=== PATIENT | female | born 1960 | race Caucasian/White ===

== ENCOUNTER → 2019-07-19 | Outpatient (CLI) | payer MEDICARE, OTHER ==
--- NOTE | 2019-07-19 18:06 | MR ---
EXAMINATION TYPE: MR knee RT wo con DATE OF EXAM: 07/19/2019 COMPARISON: None HISTORY: Rt knee pain TECHNIQUE: Multiplanar, multisequence imaging of the right knee is performed without IV contrast. FINDINGS: MEDIAL MENISCUS: There is linear increased signal within the posterior horn of the medial meniscus ho wever no clear communication with the articular surface is present LATERAL MENISCUS: Within the posterior horn of the lateral meniscus there is some irregular signal pr esent in the body however no clear communication with the articular surface is identified, at the ant erior horn however there is some irregular signal present extending to the anterior anchor region, co jolene image #16 CRUCIATE LIGAMENTS: The anterior and posterior cruciate ligaments are intact and the insertion of the anterior cruciate ligament shows some increased signal suggestive of strain or possibly partial tear . COLLATERAL LIGAMENTS: The medial collateral ligament shows fluid signal along its course, there is villalpando ggestion of grade 2 sprain and possible meniscocapsular separation, coronal image #18 EXTENSOR MECHANISM: Visualized quadriceps and patellar tendons are intact. EFFUSION: Suprapatellar joint effusion is present. POPLITEAL CYST: No popliteal/ross cyst. 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 Some arthropathy changes are pres ent. Probable strain of the medial collateral ligament with meniscocapsular separation suspected, pos sible strain or partial tear of the anterior cruciate ligament. Additional findings above.
== END | disposition home or self-care (01) ==
LOC: RADMRIMAIN 16:04
PROVIDERS: ATTEND Physician Assistant
DX: M12.861 Other specific arthropathies, not elsewhere classified, right knee (principal)

== ENCOUNTER → 2020-03-27 | Outpatient (CLI) | payer MEDICARE, OTHER ==
--- NOTE | 2020-03-27 17:44 | CT ---
EXAMINATION TYPE: CT abdomen pelvis wo/w con DATE OF EXAM: 03/27/2020 COMPARISON: None HISTORY: LUQ pain felt under ribs. Pain, bloating, radiates into back. CT DLP: 2880 mGycm CONTRAST: CT scan of the abdomen and pelvis is performed with Oral Contrast and with IV Contrast, patient injec rock with 100 mL of Isovue 300. FINDINGS: LUNG BASES-: No visible nodule. No infiltrate. LIVER/GB: The gallbladder surgically absent. No space occupying hepatic lesion. Biliary tree is of normal caliber. PANCREAS: No inflammation. No distinct mass. SPLEEN: No splenic enlargement. No lesion seen. ADRENALS: No nodule. No thickening. KIDNEYS/BLADDER: No hydronephrosis. No nephrolithiasis. No distinct renal mass. Urinary bladder g rossly unremarkable. BOWEL: Normal appendix. Normal bowel caliber. No inflammation. GENITAL ORGANS: Solid mass right ovary measuring approximately 4 x 6.7 cm. The uterus is displaced f rom right to left and demonstrates calcifications within the myometrium which may reflect calcified l eiomyomas. Left uterus is unremarkable. LYMPH NODES: No greater than 1cm abdominal or pelvic lymph nodes are appreciated. AORTA: No significant abnormality. OSSEOUS STRUCTURES: No significant abnormality is seen. OTHER: No significant additional abnormality is seen. IMPRESSION: 1. Nonspecific soft tissue mass right ovary. Ultrasound correlation is recommended. Malignancy is not excluded.
== END | disposition home or self-care (01) ==
LOC: RADCTMAIN 14:26
PROVIDERS: ATTEND Physician Assistant
DX: N83.291 Other ovarian cyst, right side (principal); R10.32 Left lower quadrant pain
CPT/HCPCS: 74178; Q9967

== ENCOUNTER → 2020-04-02 | Outpatient (CLI) | payer MEDICARE, OTHER ==
--- NOTE | 2020-04-02 08:23 | US ---
EXAMINATION TYPE: US pelvic complete DATE OF EXAM: 04/02/2020 COMPARISON: CT 03/27/20 CLINICAL HISTORY: N83.9 ovarian mass right. TECHNIQUE: . Transabdominal sonographic images of the pelvis were acquired. Transvaginal sonographi c images were medically necessary to better assess the following anatomy: Date of LMP: post menopausal EXAM MEASUREMENTS: Uterus: 7.5 x 4.4 x 5.2 cm Endometrial Stripe: 0.7 cm Right Ovary: 6.0 x 5.4 x 5.2 cm Left Ovary: non-vis 1. Uterus: Nabothian cysts; calcifications seen in ANJANA/cervix; Fibroids largest left UT 2.6 x 2.6 x 1.9 cm 2. Endometrium: wnl 3. Right Ovary: Solid appearing area 5.1 x 4.8 x 5.2 cm 4. Left Ovary: non-vis 5. Bilateral Adnexa: wnl 6. Posterior cul-de-sac: wnl IMPRESSION: 1. Uterine fibroid 2. Right ovary appears solid with a 5.1 x 4.5 0.2 cm mass. Finding correlates with the CT examination .
== END | disposition home or self-care (01) ==
LOC: RADUSWWP 07:17
PROVIDERS: ATTEND Pediatrics
DX: D25.9 Leiomyoma of uterus, unspecified (principal); N83.8 Other noninflammatory disorders of ovary, fallopian tube and broad ligament
CPT/HCPCS: 76856

== ENCOUNTER → 2020-06-01 | Outpatient (CLI) | payer MEDICARE, OTHER ==
--- NOTE | 2020-06-01 16:09 | CT ---
EXAMINATION TYPE: CT abdomen pelvis w con DATE OF EXAM: 06/01/2020 COMPARISON: CT abdomen pelvis 03/27/2020. Ultrasound pelvis 04/02/2020 HISTORY: follow up ovarian cyst CT DLP: 982.3 mGycm Automated exposure control for dose reduction was used. TECHNIQUE: Helical acquisition of images was performed from the lung bases through the pelvis. CONTRAST: Performed with Oral Contrast and with IV Contrast, patient injected with 100 mL of Isovue 300. FINDINGS: LUNG BASES: Normal. LIVER: Normal. BILIARY SYSTEM: Status post cholecystectomy. No intrahepatic or extrahepatic biliary ductal dilatatio n. PANCREAS: Normal. SPLEEN: Normal. ADRENALS: Normal. KIDNEYS: Normal. BOWEL: No obstruction or thickening. PERITONEUM: No pneumoperitoneum. No free fluid. LYMPH NODES: No lymphadenopathy. PELVIS: Normal urinary bladder. Coarse calcifications and lobular contour of uterus consistent with f ibroid changes. Within the right adnexa there is a soft tissue mass measuring 5.7 x 5.2 x 6.8 cm, pre viously measuring approximately 6.2 x 5.4 x 8.0 cm. Left ovary normal. VASCULATURE: No abdominal aortic aneurysm. MUSCULOSKELETAL: Degenerative changes of the spine. IMPRESSION: 1. Right adnexal soft tissue mass measures 5.7 x 5.2 x 6.8 cm, previously 6.2 x 5.4 x 8.0 cm on 03/27 CT comparison. Findings may be related to mild decrease in size versus slightly different confi guration within the pelvis. 2. Fibroid uterus.
== END | disposition home or self-care (01) ==
LOC: RADCTMAIN 08:42
PROVIDERS: ATTEND Internal Medicine Hematology & Oncology
DX: N83.8 Other noninflammatory disorders of ovary, fallopian tube and broad ligament (principal); D25.9 Leiomyoma of uterus, unspecified
CPT/HCPCS: 74177; Q9967

== ENCOUNTER → 2021-03-14 | Outpatient (CLI) | payer MEDICARE, OTHER ==
--- NOTE | 2021-03-18 09:51 | MM ---
Reason for exam: screening (asymptomatic). History: Patient is postmenopausal. Took hormonal contraceptives beginning at age 16. Physical Findings: A clinical breast exam by your physician is recommended on an annual basis and results should be correlated with mammographic findings. MG Screening Mammo w CAD Bilateral CC and MLO view(s) were taken. No prior studies available for comparison. Probably benign nodules left breast. ASSESSMENT: Probably benign, BI-RAD 3 RECOMMENDATION: Follow-up diagnostic mammogram of the left breast in 6 months.
== END | disposition home or self-care (01) ==
LOC: RADMAMWWP 14:22
PROVIDERS: ATTEND Family Medicine
DX: Z12.31 Encounter for screening mammogram for malignant neoplasm of breast (principal); Z78.0 Asymptomatic menopausal state
CPT/HCPCS: 77067

== ENCOUNTER 2022-06-22 13:33 | Emergency (ER) | payer MEDICARE, OTHER ==
[2022-06-22] MEDS ORDERED: IBUPROFEN 600 MG TAB PO STA (14:05)
[2022-06-22] MEDS ORDERED: ACETAMINOPHEN TAB 325 MG TAB PO STA (14:05)
[2022-06-22] MEDS ORDERED: ONDANSETRON 4 MG TAB PO STA (15:03)
--- NOTE | 2022-06-22 15:07 | ED ---
General Adult HPI - General Chief complaint: Upper Respiratory Infection Stated complaint: fever, nausea Time Seen by Provider: 06/22/22 14:04 Source: patient, family, RN notes reviewed, old records reviewed Mode of arrival: ambulatory Limitations: no limitations - History of Present Illness Initial comments: 62-year-old nontoxic-appearing female presents ambulatory with complaints of headache, nausea, fever or chills and body aches for the past 3 days. Patient states that her significant other tested positive for coronavirus last week. She has not been vaccinated. She is a nonsmoker. Does have a history of hypertension and arthritis. -: days(s) (3) Location: head Severity scale (1-10): 8 Quality: aching Consistency: constant Improves with: none Worsens with: none Associated Symptoms: cough, fever/chills, headaches, malaise, other (Body aches) Treatments Prior to Arrival: NSAID, other (Tylenol) - Related Data Previous Rx's Medication Instructions Recorded Albuterol Sulfate [Albuterol 1 puff PO Q4-6H #8.5 gm 06/22/22 Sulfate Hfa] Ondansetron Odt [Zofran Odt] 4 mg PO Q8HR PRN #10 tab 06/22/22 Allergies Allergy/AdvReac Type Severity Reaction Status Date / Time No Known Allergies Allergy Verified 06/22/22 14:01 Review of Systems ROS Statement: Those systems with pertinent positive or pertinent negative responses have been documented in the HPI. ROS Other: All systems not noted in ROS Statement are negative. Past Medical History Past Medical History: Hypertension Additional Past Medical History / Comment(s): arthritis History of Any Multi-Drug Resistant Organisms: None Reported Past Surgical History: Cholecystectomy Past Psychological History: No Psychological Hx Reported Smoking Status: Never smoker Past Alcohol Use History: None Reported Past Drug Use History: None Reported General Exam Limitations: no limitations General appearance: alert, in no apparent distress Head exam: Present: atraumatic, normocephalic Eye exam: Present: normal appearance. Absent: scleral icterus, conjunctival injection, periorbital swelling ENT exam: Present: mucous membranes moist Neck exam: Present: normal inspection, full ROM. Absent: tenderness, meningismus, lymphadenopathy Respiratory exam: Present: normal lung sounds bilaterally. Absent: respiratory distress, wheezes, rales, rhonchi, stridor, chest wall tenderness, accessory muscle use Cardiovascular Exam: Present: tachycardia GI/Abdominal exam: Present: soft. Absent: distended, rigid Extremities exam: Present: normal capillary refill. Absent: pedal edema Back exam: Present: normal inspection, full ROM. Absent: tenderness, CVA tenderness (R), CVA tenderness (L), paraspinal tenderness, vertebral tenderness, rash noted Neurological exam: Present: alert, oriented X3, normal gait Psychiatric exam: Present: normal affect, normal mood Skin exam: Present: warm, dry, normal color. Absent: cyanosis, diaphoretic, petechiae, pallor Course Vital Signs 06/22/22 06/22/22 06/22/22 13:56 15:21 16:36 Temperature 99.2 F 97.7 F Pulse Rate 108 H 91 90 Respiratory 20 18 18 Rate Blood Pressure 138/89 134/82 O2 Sat by Pulse 95 94 L 94 L Oximetry Medical Decision Making - Medical Decision Making Chest x-ray interpreted by me shows no area of consolidation. No evidence of cardiomegaly. Radiologist interpretation no active cardiopulmonary disease and normal heart. Patient was given Tylenol Motrin for discomfort and Zofran for nausea. She is positive for coronavirus. She is currently taking metoprolol for hypertension therefore unable to take Paxlovid She was encouraged to increase her fluid intake. Vitamin C, vitamin D and zinc daily to improve immune health. Return to the emergency room with any new or concerning symptoms Patient and family agreeable to this plan of care. Vital signs are stable. Case discussed with Dr. Blanco - Lab Data Lab Results 06/22/22 Range/Units 15:21 Influenza Type A (PCR) Not Detected (Not Detectd) Influenza Type B (PCR) Not Detected (Not Detectd) RSV (PCR) Not Detected (Not Detectd) SARS-CoV-2 (PCR) Detected A (Not Detectd) Disposition Clinical Impression: COVID-19 Disposition: HOME SELF-CARE Condition: Good Instructions (If sedation given, give patient instructions): Upper Respiratory Infection (ED), COVID-19 (Coronavirus Disease 2019) (ED) Additional Instructions: Increase your fluid intake. Tylenol and/or Motrin as needed for any pain, fevers or discomfort. Vitamin C, vitamin D and zinc daily to improve your immune health. Return to the emergency room with any new or concerning symptoms. Prescriptions: Albuterol Sulfate [Albuterol Sulfate Hfa] 1 puff PO Q4-6H #8.5 gm Ondansetron Odt [Zofran Odt] 4 mg PO Q8HR PRN #10 tab PRN Reason: Nausea Is patient prescribed a controlled substance at d/c from ED?: No Referrals: Nate Ferguson MD [Primary Care Provider] - 1-2 days Time of Disposition: 16:44
[2022-06-22 15:22] VITALS: BP 134/82; RESP 18
--- NOTE | 2022-06-22 15:43 | XR ---
EXAMINATION TYPE: XR chest 2V DATE OF EXAM: 06/22/2022 COMPARISON: NONE HISTORY: Cough and congestion TECHNIQUE: 2 views FINDINGS: Heart is normal. Lungs are clear of consolidation. There are no hilar masses. Costophrenic angles are clear. Bony thorax is intact. No pleural effusion. IMPRESSION: No active cardiopulmonary disease. Normal heart.
[2022-06-22 16:37] VITALS: PULSE 90; TEMP 97.7
[2022-06-22] MEDS ORDERED: ALBUTEROL HFA INHALER INHALATION STA (16:45)
== END 2022-06-22 17:25 | disposition home or self-care (01) ==
LOC: EC 13:33
DX: U07.1 COVID-19 (principal); I10 Essential (primary) hypertension
CPT/HCPCS: 71046; 87636; 99284

== ENCOUNTER 2022-06-23 05:47 | Emergency (ER) | payer MEDICARE, OTHER ==
[2022-06-23] MEDS ORDERED: KETOROLAC 15 MG/ML 1 ML VIAL IVP STA (07:16)
[2022-06-23] MEDS ORDERED: SODIUM CHLORIDE 0.9% 500 ML 500 ML IV ONE (07:16)
[2022-06-23] MEDS ORDERED: SODIUM CHLORIDE 0.9% 1,000 ML IV ONE (07:16)
[2022-06-23] MEDS ORDERED: ONDANSETRON 4 MG/2 ML VIAL IVP STA (07:16)
--- NOTE | 2022-06-23 07:19 | ED ---
URI HPI - General Chief Complaint: Upper Respiratory Infection Stated Complaint: covid+ Time Seen by Provider: 06/23/22 06:03 Source: patient, RN notes reviewed Mode of arrival: ambulatory Limitations: no limitations - History of Present Illness Initial Comments: 62-year-old female presents emergency Department chief complaint of nausea vomiting covid 19, fusion of bodyaches. Patient states she just bottles yesterday she cannot keep anything down she's been vomiting throughout the night. She was not discharged with Zofran. Patient states she did receive some emergency department yesterday. Patient states she's very achy, fatigue states that she cannot take any Tylenol or Motrin secondary to nausea and vomiting. - Related Data Previous Rx's Medication Instructions Recorded Albuterol Sulfate [Albuterol 1 puff PO Q4-6H #8.5 gm 06/22/22 Sulfate Hfa] Ondansetron Odt [Zofran Odt] 4 mg PO Q8HR PRN #10 tab 06/22/22 Ondansetron Odt [Zofran Odt] 4 mg PO Q8HR PRN #14 tab 06/23/22 Allergies Allergy/AdvReac Type Severity Reaction Status Date / Time No Known Allergies Allergy Verified 06/23/22 06:13 Review of Systems ROS Statement: Those systems with pertinent positive or pertinent negative responses have been documented in the HPI. ROS Other: All systems not noted in ROS Statement are negative. Past Medical History Past Medical History: Hypertension Additional Past Medical History / Comment(s): arthritis History of Any Multi-Drug Resistant Organisms: None Reported Past Surgical History: Cholecystectomy Past Psychological History: No Psychological Hx Reported Smoking Status: Never smoker Past Alcohol Use History: None Reported Past Drug Use History: None Reported General Exam Limitations: no limitations General appearance: alert, in no apparent distress Head exam: Present: atraumatic, normocephalic, normal inspection Eye exam: Present: normal appearance, PERRL, EOMI. Absent: scleral icterus, conjunctival injection, periorbital swelling ENT exam: Present: normal exam, normal oropharynx, mucous membranes moist Neck exam: Present: normal inspection, full ROM. Absent: tenderness, meningis mus, lymphadenopathy Respiratory exam: Present: normal lung sounds bilaterally. Absent: respiratory distress, wheezes, rales, rhonchi, stridor Cardiovascular Exam: Present: regular rate, normal rhythm, normal heart sounds. Absent: systolic murmur, diastolic murmur, rubs, gallop, clicks GI/Abdominal exam: Present: soft, normal bowel sounds. Absent: distended, tenderness, guarding, rebound, rigid Back exam: Absent: CVA tenderness (R), CVA tenderness (L) Neurological exam: Present: alert Skin exam: Present: warm, dry, intact, normal color. Absent: rash Course Vital Signs 06/23/22 06/23/22 06:12 06:13 Temperature 99.4 F 100.1 F H Pulse Rate 102 H Respiratory 20 Rate Blood Pressure 125/78 O2 Sat by Pulse 94 L Oximetry Medical Decision Making - Medical Decision Making 62-year-old presented emergency dept for COVID-19. Patient's primary complaint was nausea vomiting she was hydrated, labs are unremarkable. Patient will be discharged with antiemetics and return parameters were discussed. - Lab Data Result diagrams: 06/23/22 07:42 06/23/22 07:42 Lab Results 06/23/22 06/23/22 Range/Units 07:42 07:42 WBC 3.2 L (3.8-10.6) k/uL RBC 4.04 (3.80-5.40) m/uL Hgb 11.4 (11.4-16.0) gm/dL Hct 34.3 (34.0-46.0) % MCV 84.8 (80.0-100.0) fL MCH 28.3 (25.0-35.0) pg MCHC 33.4 (31.0-37.0) g/dL RDW 13.8 (11.5-15.5) % Plt Count 203 (150-450) k/uL MPV 7.6 Neutrophils % 76 % Lymphocytes % 10 % Monocytes % 9 % Eosinophils % 0 % Basophils % 1 % Neutrophils # 2.5 (1.3-7.7) k/uL Lymphocytes # 0.3 L (1.0-4.8) k/uL Monocytes # 0.3 (0-1.0) k/uL Eosinophils # 0.0 (0-0.7) k/uL Basophils # 0.0 (0-0.2) k/uL Sodium 137 (137-145) mmol/L Potassium 3.4 L (3.5-5.1) mmol/L Chloride 102 (98-107) mmol/L Carbon Dioxide 28 (22-30) mmol/L Anion Gap 7 mmol/L BUN 12 (7-17) mg/dL Creatinine 0.66 (0.52-1.04) mg/dL Est GFR (CKD-EPI)AfAm >90 (>60 ml/min/1.73 sqM) Est GFR (CKD-EPI)NonAf >90 (>60 ml/min/1.73 sqM) Glucose 109 H (74-99) mg/dL Calcium 8.5 (8.4-10.2) mg/dL Total Bilirubin 0.3 (0.2-1.3) mg/dL AST 35 (14-36) U/L ALT 31 (4-34) U/L Alkaline Phosphatase 87 (38-126) U/L Total Protein 6.3 (6.3-8.2) g/dL Albumin 3.9 (3.5-5.0) g/dL Disposition Clinical Impression: COVID-19, Nausea & vomiting Disposition: HOME SELF-CARE Condition: Stable Instructions (If sedation given, give patient instructions): COVID-19 (Coronavirus Disease 2019) (ED) Additional Instructions: Please return to the Emergency Department if symptoms worsen or any other concerns. Prescriptions: Ondansetron Odt [Zofran Odt] 4 mg PO Q8HR PRN #14 tab PRN Reason: Nausea Is patient prescribed a controlled substance at d/c from ED?: No Referrals: Nate Ferguson MD [Primary Care Provider] - 1-2 days Time of Disposition: 08:08
[2022-06-23 07:47] LABS: Basophils % (A) 1 %; Eosinophils % (A) 0 %; HCT 34.3 % (34.0-46.0); HGB 11.4 gm/dL (11.4-16.0); Lymphocytes # (A) 0.3 k/uL (1.0-4.8); Lymphocytes % (A) 10 %; MCH 28.3 pg (25.0-35.0); MCHC 33.4 g/dL (31.0-37.0); MCV 84.8 fL (80.0-100.0); Mean Platelet Volume 7.6; Monocytes # (A) 0.3 k/uL (0-1.0); Monocytes % (A) 9 %; Neutrophils # (A) 2.5 k/uL (1.3-7.7); Neutrophils % (A) 76 %; Platelet Count 203 k/uL (150-450); RBC 4.04 m/uL (3.80-5.40); RDW 13.8 % (11.5-15.5); WBC 3.2 k/uL (3.8-10.6)
[2022-06-23 07:58] LABS: ALT 31 U/L (4-34); AST 35 U/L (14-36); African American GFR (CKD) >90 (>60 ml/min/1.73 sqM); Albumin 3.9 g/dL (3.5-5.0); Alkaline Phosphatase 87 U/L (38-126); Anion Gap 7 mmol/L; Blood Urea Nitrogen 12 mg/dL (7-17); Calcium 8.5 mg/dL (8.4-10.2); Carbon Dioxide 28 mmol/L (22-30); Chloride 102 mmol/L (98-107); Glucose 109 mg/dL (74-99); Non-African American GFR(CKD) >90 (>60 ml/min/1.73 sqM); Potassium 3.4 mmol/L (3.5-5.1); Sodium 137 mmol/L (137-145); Total Bilirubin 0.3 mg/dL (0.2-1.3); Total Protein 6.3 g/dL (6.3-8.2)
[2022-06-23] MEDS ORDERED: ACETAMINOPHEN TAB 500 MG TAB PO STA (08:17)
[2022-06-23 08:59] VITALS: BP 149/84; PULSE 84; RESP 19; TEMP 99
== END 2022-06-23 09:00 | disposition home or self-care (01) ==
LOC: EC 05:47
DX: U07.1 COVID-19 (principal); I10 Essential (primary) hypertension; Z90.49 Acquired absence of other specified parts of digestive tract; Z79.899 Other long term (current) drug therapy
CPT/HCPCS: 36415; 80053; 85025; 99284; 96374; 96375; 96361 ×2; J2405; J1885; 96360

== ENCOUNTER → 2022-08-13 | Outpatient (CLI) | payer MEDICARE, OTHER ==
--- NOTE | 2022-08-13 15:59 | US ---
EXAMINATION TYPE: US carotid duplex BILAT DATE OF EXAM: 08/13/2022 COMPARISON: NONE CLINICAL HISTORY: H539 VISUAL CHANGES. Pt states recent changes in her vision TECHNIQUE: Carotid duplex ultrasound examination. Indirect Doppler criteria was utilized. FINDINGS: EXAM MEASUREMENTS: RIGHT: Peak Systolic Velocity (PSV) cm/sec ----- Right CCA: 83.1 ----- Right ICA: 105.6 ----- Right ECA: 84.2 ICA/CCA ratio: 1.3 RIGHT: End Diastole cm/sec ----- Right CCA: 13.8 ----- Right ICA: 38.3 ----- Right ECA: 18.2 LEFT: Peak Systolic Velocity (PSV) cm/sec ----- Left CCA: 64.2 ----- Left ICA: 103.0 ----- Left ECA: 78.2 ICA/CCA ratio: 1.6 LEFT: End Diastole cm/sec ----- Left CCA: 25.8 ----- Left ICA: 44.8 ----- Left ECA: 19.7 VERTEBRALS (direction of flow): Right Vertebral: Antegrade Left Vertebral: Antegrade Rhythm: Normal GERIATRIC PSYCHIATRIST NOTES: No significant stenosis seen IMPRESSION: Mild atherosclerotic plaque with no significant hemodynamic stenosis. Criteria for Assigning % of Stenosis / Diameter reduction (Estimation based on the indirect measurements of the internal carotid artery velocities (ICA PSV). 1. Normal (no stenosis)=ICA PSV < 125 cm/s: ratio < 2.0: ICA EDV<40 cm/s. 2. Less than 50% stenosis=ICA PSV < 125 cm/s: ratio < 2.0: ICA EDV<40 cm/s. 3. 50 to 69% stenosis=ICA PSV of 125 to 230 cm/s: ration 2.0 ? 4.0: ICA EDV 40-100 cm/s. 4. Greater than 70% stenosis to near occlusion= ICA PSV > 230 cm/s: ratio > 4.0: ICA EDV > 100 cm/s. 5. Near occlusion= ICA PSV velocities may be low or undetectable: variable ratio and ICA EDV. 6. Total occlusion=unable to detect flow.
--- NOTE | 2022-08-13 16:01 | US ---
EXAMINATION TYPE: US thyroid st tissue head/neck DATE OF EXAM: 08/13/2022 COMPARISON: NONE CLINICAL HISTORY: R1310 DYSPHAGIA. Dysphagia GLAND SIZE: Right Lobe: 4.5 x 1.6 x 1.6 cm Overall Parenchyma: Slightly heterogeneous Left Lobe: 4.0 x 1.5 x 1.2 cm Overall Parenchyma: Slightly heterogeneous Isthmus Thickness: 0.4 cm NODULES RIGHT: # of nodules measured on right: 0 LEFT: # of nodules measured on left: 0 ISTHMUS: # of nodules measured in the isthmus: 0 Bilateral neck scanned, no evidence of lymphadenopathy. Bilateral thyroid slightly heterogeneous with out evidence of nodules. IMPRESSION: Correlate for thyroiditis. No sizable thyroid nodules seen. 2017 ACR TI-RADS LEVEL: TR-RADS 1 - BENIGN: No FNA *Highest TI-RADS level nodule reported
--- NOTE | 2022-08-14 19:59 | MM ---
Reason for Exam: Screening (asymptomatic). Last mammogram was performed 1 year(s) and 5 month(s) ago. Patient History: Menarche at age 12. First Full-Term at age 14. Postmenopausal. Hormonal Contraceptives, from age 16 until age 28. Risk Values: Dorina 5 year model risk: 1.1%. NCI Lifetime model risk: 4.3%. Prior Study Comparison: 03/14/2021 Bilateral Screening Mammogram, [facility]. Tissue Density: There are scattered fibroglandular densities. Findings: Analyzed By CAD. Chronic nodularity upper outer quadrant left breast. There is no suspicious group of microcalcifications or new suspicious mass in either breast. Overall Assessment: Benign, BI-RAD 2 Management: Screening Mammogram of both breasts in 1 year. 1. Patient should continue monthly self breast exams. 2. A clinical breast exam by your physician is recommended on an annual basis. 3. This exam should not preclude additional follow-up of suspicious palpable abnormalities. Electronically signed and approved by: Samir Jacobs M.D. Radiologist
== END | disposition home or self-care (01) ==
LOC: RADMAMWWP 14:32
PROVIDERS: ATTEND Pediatrics
DX: Z12.31 Encounter for screening mammogram for malignant neoplasm of breast (principal); I65.23 Occlusion and stenosis of bilateral carotid arteries; D64.9 Anemia, unspecified; H53.9 Unspecified visual disturbance; R13.10 Dysphagia, unspecified; Z78.0 Asymptomatic menopausal state
CPT/HCPCS: 76536; 77067; 93880

== ENCOUNTER → 2022-08-15 | Outpatient (CLI) | payer MEDICARE, OTHER ==
--- NOTE | 2022-08-15 10:29 | FL ---
EXAMINATION TYPE: FL barium swallow DATE OF EXAM: 08/15/2022 10:22 AM COMPARISON: None. CLINICAL INDICATION:Female, 62 years old with history of R13.10 DYSPHAGIA; PHH, TECHNIQUE: The procedure was explained and patient history elicited. All patient questions were ans wered prior to start of procedure. Multiple spot fluoroscopic images of the esophagus were obtained a fter the oral ingestion of effervescent crystals and liquid barium as the contrast agent. Fluoroscopic time: 29 seconds Fluoroscopic images: 126 FINDINGS: The esophagus demonstrates normal primary and secondary peristalsis. The esophageal mucosa is smooth without evidence of focal stricture, ulceration, or abnormal outpouching. No gastroesophageal reflu x disease was identified. Cervical fusion hardware demonstrated. Cholecystectomy clips in the right u pper quadrant. IMPRESSION: Normal esophagram.
== END | disposition home or self-care (01) ==
LOC: RADUSWWP 09:40
PROVIDERS: ATTEND Pediatrics
DX: R13.10 Dysphagia, unspecified (principal)
CPT/HCPCS: 74220

== ENCOUNTER → 2022-08-20 | Outpatient (CLI) | payer MEDICARE, OTHER ==
--- NOTE | 2022-08-20 14:28 | MR ---
EXAMINATION TYPE: MR brain wo con DATE OF EXAM: 08/20/2022 1:17 PM COMPARISON: None. CLINICAL INDICATION:Female, 62 years old with history of H53.9 VISUAL DISTURBANCE; TECHNIQUE: Multi planar, multi sequence imaging was performed through the brain including: T1, T2, In version recovery, Diffusion weighted imaging, and gradient echo imaging. No gadolinium was given. FINDINGS: The norman-white junctions, ventricular system, and cisterns appear unremarkable. Scattered foci of hi gh T2 signal intensity are seen within the periventricular white matter. Midline structures show no a bnormality. Diffusion-weighted imaging shows no evidence of restricted diffusion. The susceptibility weighted images reveals blooming artifact scattered throughout including the right occipital lobe, le ft parietal lobe and left thalamus, The bone marrow signal is within normal limits. Paranasal sinuses and mastoid air cells: Mild scattered paranasal sinus disease. Visualized orbits: Orbital contents are intact. IMPRESSION: 1. No evidence of intracranial mass or acute/subacute infarct. 2. Nonspecific white matter changes, likely secondary to small vessel ischemic disease.
== END | disposition home or self-care (01) ==
LOC: RADMRIMAIN 11:15
PROVIDERS: ATTEND Physician Assistant
DX: G93.89 Other specified disorders of brain (principal); H53.9 Unspecified visual disturbance
CPT/HCPCS: 70551

== ENCOUNTER → 2023-03-11 | Outpatient (CLI) | payer MEDICARE, OTHER ==
--- NOTE | 2023-03-11 12:33 | XR ---
EXAMINATION TYPE: XR chest 2V DATE OF EXAM: 03/11/2023 11:41 AM COMPARISON: Chest radiographs from 06/22/2022 TECHNIQUE: XR chest 2V Frontal and lateral views of the chest. CLINICAL INDICATION:Female, 62 years old with history of R05.9 Cough; FINDINGS: Lungs/Pleura: There is no evidence of pleural effusion, focal consolidation, or pneumothorax. Pulmonary vascularity: Unremarkable. Heart/mediastinum: Cardiomediastinal silhouette is unremarkable. Musculoskeletal: Multiple level degenerative disc disease changes seen throughout the spine. Anterior cervical fusion hardware. IMPRESSION: No acute cardiopulmonary disease/process. No significant change from prior examination.
== END | disposition home or self-care (01) ==
LOC: RADXRMAIN 11:20
PROVIDERS: ATTEND Physician Assistant
DX: R05.9 Cough, unspecified (principal)
CPT/HCPCS: 71046

== ENCOUNTER → 2024-01-06 | Outpatient (CLI) | payer MEDICARE ==
--- NOTE | 2024-01-06 11:56 | XR ---
EXAMINATION TYPE: XR foot complete 3 views bilateral, XR hand complete 3 views bilateral, XR sacroiliac joint comp 3 views BILAT DATE OF EXAM: 01/06/2024 Comparison: None Clinical History: 63-year-old female M06.9 RHEUMATOID ARTHRITIS M54.50 LOW BACK PAIN M8 Findings: Feet: On the right, there is a partite tibial sesamoid and small to moderate sized plantar heel spur. No ma rginal erosions or soft tissue calcifications. No acute fracture, subluxation, or dislocation seen. On the left, there is a corticated bone density at the base of the fifth metatarsal suggesting sequel a of old injury. No marginal erosions. No acute fracture, subluxation, dislocation. Qjjyp-[id number] sized plantar heel spur. Small posterior heel spur. Subtalar joint is aligned. Hands: Mild to moderate degenerative change of the bilateral first CMC joints. There is some periarticular o steopenia noted but no marginal erosions or soft tissue calcification seen. No acute fracture, sublux ation, dislocation. SI joints: No subarticular erosions or abnormal widening is seen. Calcifications in the pelvis could represent s ome uterine fibroid change. Mild degenerative change of both hips. No delineation of the arcuate line s of the sacrum. Degenerative disc disease L5-S1. Impression: 1. Feet: [id number]-[id number] sized plantar heel spurs on both sides. Correlate for sequela of old injur y at the base of the fifth metatarsal on the left. No acute osseous abnormality seen. No or specific findings of inflammatory arthropathy at this time. 2. Hands: Periarticular osteopenia which may be age related change but may also be seen as an early f inding of inflammatory arthropathy. However, no marginal erosions or other specific findings are seen . Mild to moderate OA at the basal joint of the thumbs. 3. SI joints: No significant radiographic findings of sacroiliitis. Mild bilateral hip bullae. There may be some underlying calcified uterine fibroids. Degenerative disc disease L5-S1.
== END | disposition home or self-care (01) ==
LOC: RADXRMAIN 09:39
PROVIDERS: ATTEND Internal Medicine
DX: M77.32 Calcaneal spur, left foot (principal); M77.31 Calcaneal spur, right foot; M19.071 Primary osteoarthritis, right ankle and foot; M19.072 Primary osteoarthritis, left ankle and foot; M85.80 Other specified disorders of bone density and structure, unspecified site; M51.37 Other intervertebral disc degeneration, lumbosacral region
CPT/HCPCS: 72202

== ENCOUNTER → 2024-01-08 | Outpatient (CLI) | payer MEDICARE ==
--- NOTE | 2024-01-08 18:33 | BD ---
EXAMINATION TYPE: Axial Bone Density DATE OF EXAM: 01/08/2024 CLINICAL HISTORY: 63 years old Female. ICD-10 CODE: M81.0 AGE-RELATED OSTEOPOROSIS W/O CURRENT PATHO LO Height: 64 Weight: 159 FRAX RISK QUESTIONS: Glucocorticoids (More than 3mos): yes, for RA, and methotrexate as well (Ex: prednisone, prednisolone, methylprednisolone, dexamethasone, and hydrocortisone). Secondary Osteoporosis: yes 3. Menopause before 45: yes at 41 Rheumatoid Arthritis: yes RISK FACTORS HISTORY OF: RA, chronic pain, Surgery to Spine fusion to lower back, surgically and titanium plate in her neck. MEDICATIONS: cholesterol meds, bp meds, EXAM MEASUREMENTS: Bone mineral densitometry was performed using the [employer] System. spinal fusion, spine not scanned. Bone mineral density about the R hip (g/cm2): 0.913 Bone mineral density about the L hip (g/cm2): 0.985 T Score values are as follows: -----R Neck: -1.3 -----L Neck: -1.3 -----R Total: -0.8 -----L Total: -0.2 Z Score values are as follows: -----R Neck: 0.0 -----L Neck: 0.1 -----R Total: 0.3 -----L Total: 0.9 Bone mineral density this is her first bone density, baseline study. Bone mineral density about the L Wrist (g/cm2): 0.496 T Score values are as follows: -----Dist. R+U: -2.3 -----Prox. R+U: -2.3 -----Radius total: -2.7 Z Score values are as follows: -----Dist. R+U: -0.9 -----Prox. R+U: -0.9 -----Radius total: -1.3 Bone mineral density is her baseline study. FRAX%s: The graph provided illustrates a 13.5% chance for a major osteoporotic fx and a 1.5% chance f or the hips probability for fx in 10 years time. IMPRESSION: Osteopenia (T Score between -2.5 and -1). There is slightly increased risk of fracture and the patient may be considered for treatment. Re-Screen 2-5 years. NOTE: T-SCORE=SD OF THE YOUNG ADULT MEAN.
== END | disposition home or self-care (01) ==
LOC: RADBDWWP 11:00
PROVIDERS: ATTEND Internal Medicine
DX: M85.89 Other specified disorders of bone density and structure, multiple sites (principal); M81.0 Age-related osteoporosis without current pathological fracture; M06.9 Rheumatoid arthritis, unspecified; M54.50 Low back pain, unspecified; Z78.0 Asymptomatic menopausal state; Z98.1 Arthrodesis status
CPT/HCPCS: 77080

== ENCOUNTER → 2024-07-15 | Outpatient (CLI) | payer MEDICARE ==
--- NOTE | 2024-07-15 18:30 | XR ---
EXAMINATION TYPE: XR elbow complete LT DATE OF EXAM: 07/15/2024 10:21 AM COMPARISON: None. CLINICAL INDICATION: Female, 64 years old with history of M25.555 L elbow pain TECHNIQUE: 3 view(s) obtained. FINDINGS: There is loss of joint space at the radial humeral junction. There is loss of joint space in the milvia ral ulnar joint. Spurring is evident. No acute fracture is identified. Anterior fat pad appears normal. Suspicious elevation of the posteri or fat pad is not identified. IMPRESSION: 1. Advanced degenerative joint changes at the left elbow. [facility], , 07/15/2024 6:28 PM
--- NOTE | 2024-07-15 18:30 | XR ---
EXAMINATION TYPE: XR cervical spine comp DATE OF EXAM: 07/15/2024 10:21 AM COMPARISON: None. CLINICAL INDICATION: Female, 64 years old with history of M50.10 cervical radiculopathy, TECHNIQUE: 5 view(s) obtained. FINDINGS: Anterior cervical fusion is present C5-C7. Some mild foraminal narrowing on the right at C5-6 C6-7 ma y be present. Moderate left foraminal stenosis is present C2-3. Disc spacers are present at the level of the anterior cervical fusion. Odontoid is nondiagnostic with overlying occiput. IMPRESSION: 1. Postsurgical changes C5-C7. 2. Some moderate foraminal narrowing on the left at C3-4. Some mild right foraminal stenosis may be present C5-6 C6-7. [facility], , 07/15/2024 6:25 PM
== END | disposition home or self-care (01) ==
LOC: RADXRMAIN 09:27
PROVIDERS: ATTEND Physician Assistant
DX: M50.10 Cervical disc disorder with radiculopathy, unspecified cervical region (principal); M19.022 Primary osteoarthritis, left elbow; S14.109S Unspecified injury at unspecified level of cervical spinal cord, sequela; Z98.890 Other specified postprocedural states
CPT/HCPCS: 72050

== ENCOUNTER → 2024-07-25 | Outpatient (CLI) | payer MEDICARE ==
[2024-07-25 08:14] LABS: African American GFR (CKD) >90 (>60 ml/min/1.73 sqM); Blood Urea Nitrogen 14 mg/dL (7-17); Non-African American GFR(CKD) >90 (>60 ml/min/1.73 sqM)
--- NOTE | 2024-07-25 12:51 | CT ---
EXAMINATION TYPE: CT soft tissue neck w con CT DLP: 302.3 mGycm, Automated exposure control for dose reduction was used. DATE OF EXAM: 07/25/2024 8:39 AM COMPARISON: Cervical spine radiograph 07/15/2024. CLINICAL INDICATION:Female, 64 years old with history of R22.1 LOCALIZED MASS SWELLING LUMP; PHH, LEF T SIDED NECK MASS TECHNIQUE: Standard enhanced CT of the neck following intravenous administration of 100 cc of Isovue 300. Axial sections with coronal and sagittal reformats were obtained. BB marker placed at site of p alpable abnormality. FINDINGS: Brain: Visualized portions are grossly unremarkable. Orbits: Unremarkable Sinuses: Grossly unremarkable. Suprahyoid Neck: The oropharynx, oral cavity, parapharyngeal and retropharyngeal spaces are clear and symmetric. The nasopharynx is unremarkable. Infrahyoid Neck: The larynx, hypopharynx, and supraglottic area are clear and symmetric. Parotid Glands: Unremarkable. Submandibular Glands: Unremarkable. Musculoskeletal: No acute osseous pathology. Post surgical changes from ACDF C5-C7. Lymph nodes: Few nonenlarged lymph nodes are seen along both anterior chains of the neck. Vascular structures: Visualized major arteries are patent without evidence of aneurysm. Thoracic Inlet/airway: Airway is patent. The lung apices are clear. Soft tissues/Thyroid: Thyroid and remainder of the soft tissues are unremarkable. No abnormality iden tified at site of palpable marker. Other: none. IMPRESSION 1. No CT evidence for significant abnormality. No abnormality identified at site of palpable marker. [facility], , 07/25/2024 12:49 PM
== END | disposition home or self-care (01) ==
LOC: RADCTMAIN 07:37
PROVIDERS: ATTEND Family Medicine
DX: M50.10 Cervical disc disorder with radiculopathy, unspecified cervical region (principal); S14.109S Unspecified injury at unspecified level of cervical spinal cord, sequela; R22.1 Localized swelling, mass and lump, neck; R49.0 Dysphonia; R94.6 Abnormal results of thyroid function studies
CPT/HCPCS: 82565; 84520; 70491; 36415; Q9967